=== PATIENT | male | born 1955 | race Caucasian/White ===

== ENCOUNTER 2017-05-14 06:11 | Emergency (ER) | payer MEDICARE ==
[~2017-05-14] VITALS: Ht 195.6 cm; Wt 107.7 kg
[2017-05-14 06:14] VITALS: TEMP 97.8
[2017-05-14] MEDS ORDERED: PRINIVIL40 MG PO (06:26)
[2017-05-14] MEDS ORDERED: HCTZ 25MG TAB25 MG PO (06:26)
[2017-05-14] MEDS ORDERED: NORVASC 10MG10 MG PO (06:26)
[2017-05-14] MEDS ORDERED: ASPIRIN 81M81 MG/TA2 PO (06:27)
[2017-05-14] MEDS ORDERED: DILAUDID 4MG TAB4 MG PO (06:27)
[2017-05-14] MEDS ORDERED: XANAX 0.5MG0.5 MG PO (06:27)
[2017-05-14] MEDS ORDERED: PERCOCET 325 MG1 TAB PO (06:28)
[2017-05-14 07:39] LABS: BASO % 0.8 % (0.0-2.0); EOS # 0.1 (0.0-0.7); EOS % 1.2 % (0-4.0); GRAN # 3.2 (1.4-6.5); GRAN % 64.1 % (42.2-75.2); HEMATOCRIT 38.5 % (42.0-52.0); HEMOGLOBIN 13.3 g/dl (13.5-18.0); LYMPH # 1.2 (1.2-3.4); LYMPH % 24.8 % (20.0-51.0); MEAN CELL VOLUME 87 fl (80.0-100.0); MEAN CORPUSCULAR HEMOGLOBIN 30 pg (27.0-31.0); MEAN CORPUSCULAR HGB CONC 35 g/dl (33.0-37.0); MEAN PLATELET VOLUME 10.5 fl (7.4-10.4); MONO # 0.4 (0.1-0.6); MONO % 8.3 % (1.7-9.3); PLATELET COUNT 219 K/mm3 (130-400); RED BLOOD COUNT 4.45 M/mm3 (4.20-5.60); REDCELL DISTRIBUTION WIDTH-CV 13.4 % (11.5-14.5); WHITE BLOOD COUNT 4.9 K/mm3 (4.8-10.8)
[2017-05-14 07:53] LABS: C-REACTIVE PROTEIN 2.2 mg/dL (0.0-0.9); CALCIUM 8.7 mg/dL (8.4-10.2); CREATININE, serum 0.9 mg/dL (0.66-1.25); POTASSIUM 3.4 mmol/L (3.4-5.0)
[2017-05-14] MEDS ORDERED: FLEXERIL 1010 MG/TAB PO (08:46)
[2017-05-14] MEDS ORDERED: VOLTAREN 75 DR75 MG PO (08:46)
[2017-05-14] MEDS ORDERED: PREDNISONE20 MG PO (08:46)
[2017-05-14 08:55] VITALS: BP 165/107; PULSE 64
== END 2017-05-14 08:56 | disposition home or self-care (01) ==
LOC: COL.ER 06:11
PROVIDERS: Emergency Medicine
DX: M54.2 Cervicalgia (principal); I10 Essential (primary) hypertension; F17.210 Nicotine dependence, cigarettes, uncomplicated
CPT/HCPCS: J1885; J2360; J2930

== ENCOUNTER → 2017-06-29 | Outpatient (CLI) | payer MEDICARE ==
[~2017-06-29] MED LIST: ASPIRIN 81M81 MG/TA2 PO; DILAUDID 4MG TAB4 MG PO; FLEXERIL 1010 MG/TAB PO; HCTZ 25MG TAB25 MG PO; NORVASC 10MG10 MG PO; PERCOCET 325 MG1 TAB PO; PREDNISONE20 MG PO; PRINIVIL40 MG PO; VOLTAREN 75 DR75 MG PO; XANAX 0.5MG0.5 MG PO
== END ==
LOC: ZCOL.LAB 20:37
DX: L02.11 Cutaneous abscess of neck (principal)